=== PATIENT | female | born 1980 | race Caucasian/White ===

== ENCOUNTER 2016-12-18 05:00 | Inpatient (IN) | payer MEDICAID ==
[2016-12-15 10:26] LABS: BASOPHILS 0.2 % (0-2); EOSINOPHILS 2.6 % (0-7); HEMATOCRIT 40.3 % (36.0-48.0); HEMOGLOBIN 13.4 g/dL (12-16); IMMATURE GRANULOCYTES 0.2 % (0-5); LYMPHOCYTES 46.2 % (15-50); MCH 32.1 pg (26.0-34.0); MCHC 33.3 g/dL (31.0-37.0); MCV 96.4 fL (80.0-100.0); MEAN PLATELET VOLUME 9.7 fL (7.4-10.4); MONOCYTES 7.2 % (2-11); NEUTROPHILS 43.6 % (40-80); RBC 4.18 10x6/uL (4.00-5.40); RDW 11.8 % (11.5-14.5); WBC 5.3 10x3/uL (4.8-10.8)
[2016-12-15 10:28] LABS: PLATELET COUNT 340 10x3/uL (130-400)
[2016-12-15 10:35] LABS: CALC OSMOLALITY 275 mosm/kg (275-300); CALCIUM 8.9 mg/dL (8.5-10.1); CARBON DIOXIDE 26.8 mmol/L (21.0-32.0); CHLORIDE - SERUM 103 mmol/L (98-107); CREATININE - SERUM 0.9 mg/dL (0.6-1.3); GLUCOSE 97 mg/dL (74-106); POTASSIUM - SERUM 4.3 mmol/L (3.5-5.1); SODIUM 138 mmol/L (136-145); UREA NITROGEN 13 mg/dL (7-18); eGFR NON AFRICAN AMERICAN 76 mL/min (90-120)
[~2016-12-18] VITALS: Ht 162.6 cm; Wt 81.0 kg
[2016-12-18] VITALS (17 sets, daily range): BP systolic 96–130; BP diastolic 52–79; Ht 162.6 cm; Wt 81.0 kg
[~2016-12-18 05:00] MED LIST: ADIPEX-P37.5 MG PO
[2016-12-18 06:22] LABS: HCG URINE NEGATIVE (NEGATIVE)
--- NOTE | 2016-12-18 10:49 | NUR ---
RECEIVED PT TO ROOM VIA PT BED, SR UP X2, BED IN LOW POSIITON, PERIPHERAL IV TO RIGHT AC INTACT AND INFUSING LR AT 125ML/HR VIA PUMP, RESP EVEN AND UNLABORED, O2 AT 2L/MIN VIA NC AT 96%, HOB ELEVATED TO 30 DEGREES, LOW TRANSVERSE INCISION CDI WITH DERMABOND NOTED, SCD'S IN PLACE AND WORKING PROPERLY TO BLE, CAMEJO CATHETER TO GRAVITY DRAINAGE WITH CLEAR YELLOW URINE NOTED IN CHAMBER. PT MOANING RATING PAIN 10 OUT OF 10 USING NUMERIC PAIN SCALE, FOOD SAFETY TECHNICIAN MORPHINE TO PUMP INFUSING ORDERED, TEACHING PROVIDED REGARDING FOOD SAFETY TECHNICIAN BUTTON USE, STATES UNDERSTANDING. ENCOURAGED TCDB HOURLY. WILL REINFORCE. PHONE CALL TO PT SPOUSE PER PT REQUEST PERFORMED TO NOTIFY OF ADMISSION TO UNIT AND ROOM NUMBER.
--- NOTE | 2016-12-18 11:30 | NUR ---
PT RESTING WITH EYES CLOSED, WAKES PERIODICALLY MOANING, FOLLOWS DIRECTIONS, FERTILIZER MIXER BUTTON IN RIGHT HAND AND C/L IN EASY REACH. ENCOURAGED FERTILIZER MIXER BUTTON USE PRN, SPOUSE AT BEDSIDE. TEACHING DONE WITH SPOUSE AND PT. SPOUSE STATES WILL HAVE TO GO HOME BUT PT FRIEND WILL COME AND SIT WITH PT LATER.
--- NOTE | 2016-12-18 12:00 | NUR ---
NPO X ICE CHIPS PER MD HAWKINS. SEE FLOW SHEET. RESP EVEN AND UNLABORED. PT SLEEPING, WAKES FOR TCDB/INCENTIVE SPIROMETER. IS UP TO 500ML WITH ENCOURAGEMENT, ICE PACK TO LOW TRANSVERSE ABDOMEN, IV SITE PATENT WITHOUT S/SX INFILTRATION OR INFECTION AT THIS TIME.
--- NOTE | 2016-12-18 13:40 | NUR ---
PT FRIEND CAMMIE AT BEDSIDE, EXPLAINED POC, NPO X ICE CHIPS, PT REMAINS DROWSY, SLIP RESISTANT SOCKS TO BLE. SR UP X2, BED IN LOW POSITION.
--- NOTE | 2016-12-18 14:20 | NUR ---
DR HAWKINS TO PT ROOM, PT WAKES TO VERBAL STIMULI AND BEGINS MOANING, RESP EVEN AND UNLABORED AT 18, LUNGS CTAB, CASH APPLICATION CLERK BUTTON IN RIGHT HAND, CAMEJO CARE GIVEN, ICE PACK TO LOW TRANSVERSE ABDOMEN. NPO X ICE CHIPS.
--- NOTE | 2016-12-18 14:39 | NUR ---
TORADOL GIVEN PER MD ORDERS FOR PT C/O PAIN.
--- NOTE | 2016-12-18 15:25 | NUR ---
PT REPORTS INCREASED PAIN RELIEF SINCE TORADOL GIVEN ORDERED. RESP EVEN AND UNLABORED. AWAKE ON ENTRY TO ROOM. C/L IN EASY REACH, POC DISCUSSED. PT NODS IN RESPONSE.
--- NOTE | 2016-12-18 16:22 | NUR ---
PT RESTING WITH EYES CLOSED. ROUSES TO VERBAL STIMULI, C/L IN EASY REACH, REMINDED TO PUSH OFFICE MACHINE EMBOSSOGRAPH OPERATOR BUTTON WHEN NEEDED FOR PAIN CONTROL, DISCUSSED POC. ICE CHIPS PROVIDED.
--- NOTE | 2016-12-18 17:10 | NUR ---
PT RESTING WITH EYES CLOSED, ROUSES TO VERBAL STIMULI, TEMP 97.8 AX, ICE CHIPS GIVEN TO PT PER REQUEST, FRESH ICE PACK TO LOW TRANSVERSE ABDOMEN, REPORTS PAIN A 4 ON PAIN SCALE, ENCOURAGED USE OF TRIPLE VALVE MECHANIC BUTTON PRN. SR UP X2, BED IN LOW POSITION.
--- NOTE | 2016-12-18 18:14 | NUR ---
PT RESTING WITH EYES CLOSED, RESP EVEN AND UNLABORED, C/L AND CERTIFIED LEGAL INVESTIGATOR BUTTON WITHIN EASY REACH. NO VISUAL S/SX PAIN OBSERVED.
--- NOTE | 2016-12-18 19:20 | NUR ---
EYES CLOSED BUT EASILY AWAKENED DURING INITIAL ROUNDS. INTRODUCED SELF. V/S TAKEN. STATUS POST ISIDRA TODAY. LOW TRANSVERSE INCISION WITH DERMABOND. IVF LR TO R ac @ 125cc/hr. IV SITE OK. ON MORPHINE METAL BONDING ASSEMBLER FOR PAIN MANAGEMENT. SEE E-MAR. CAMEJO CATH TO DRAINAGE BAG. SCD's TO BOTH LOWER EXTREMITIES TO PREVENT DVT. INCENTIVE SPIROMETER AT BEDSIDE--REMINDED PT TO USE IT.
--- NOTE | 2016-12-18 20:05 | NUR ---
PAIN LEVEL 7-8/10 FROM ABD INCISION. TORADOL 30mg IV GIVEN FOR BREAKTHROUGH PAIN. SEE E-MAR.
--- NOTE | 2016-12-18 23:52 | NUR ---
V/S STABLE. IV PUMP CLEARED. CAMEJO CATH BAG EMTIED. ICE CHIPS GUVEN.
--- NOTE | 2016-12-19 02:08 | NUR ---
TORADOL 30mg IV GIVEN FOR BREAK-THROUGH PAIN. SEE E-MAR.
[2016-12-19 04:40] VITALS: BP 96/52
--- NOTE | 2016-12-19 04:42 | NUR ---
MORPHINE TAR HEAT EXCHANGER CLEANER SYRINGE CHANGED. REGLAN 5mg IV GIVEN. SEE E-MAR.
--- NOTE | 2016-12-19 04:50 | NUR ---
V/DSTABLE. CAMEJO CATH BAG EMTIED. IV PUMP CLEARED. SLEPT FAIRLY DURING THE NIGHT. CONTINUING PLAN OF CARE.
--- NOTE | 2016-12-19 06:50 | OP ---
PATIENT NAME: JOE TOTH MEDICAL RECORD: [id number] :84 LOCATION:[id number] ADMISSION DATE:12/18/16 SURGEON: JASON HAWKINS MD DATE OF OPERATION: 12/18/2016 PREOPERATIVE DIAGNOSIS: FABIO 2. POSTOPERATIVE DIAGNOSIS: FABIO 2. PROCEDURE: Total abdominal hysterectomy with bilateral salpingectomy. RETAIL GREETING CARD MERCHANDISER: Ms. Duffy ANESTHETIC: General with nerve block. FINDINGS: Uterus is unremarkable. The bulb was palpated. The abdominal anatomy was unremarkable. Tubes are interrupted with Filshie clips. Ovaries are unremarkable. SPECIMENS REMOVED: Tubes bilaterally, uterus, and cervix. Specimen disposition pathology. ESTIMATED BLOOD LOSS: 200 cc. FLUIDS: 1400 cc of lactated Ringer. URINE OUTPUT: 400 cc of clear urine. COMPLICATIONS: None. DRAINS: Correa to gravity. INDICATION FOR PROCEDURE: The patient is considered for total laparoscopic hysterectomy. Due to equipment issues and after counseling and offering deferral of procedure, the patient was consented for total abdominal hysterectomy. The patient understands risks and benefits as well as limitations. The patient understands the recovery time compared to laparoscopic. The patient wishes to proceed. DESCRIPTION OF PROCEDURE: After informed consent was assured, the patient was taken to the operating room where anesthetic was obtained without difficulty. The patient is now prepped and draped in the usual sterile fashion after being placed supine on the table. Pfannenstiel skin incision was made and carried down to the underlying layer of the fascia, which is opened in the midline and then carried out laterally. Rectus bellies were and the peritoneum was entered sharply. An Joselito O retractor was placed and the bowel packed free the pelvis. Using handheld retractors, the uterus is identified and Carmalt clamps placed over the uterine cornua. Right round ligament is grasped with a Peggy, elevated and stick tied. Using Bovie cautery, the round ligament was entered. The broad ligament was dissected anteriorly and bladder flap is completed across the midline. The window was developed posteriorly and incorporating the tube. The pedicle was made mobile with scissors and then a gbsw-uzk-plu stitch placed on the lateral portion of this pedicle. The connective tissue of the parametrium is dissected free of the right vessel. The vessel bundle was now clamped with Divya clamp. A straight clamp was placed OPERATIVE REPORT [id number] PRECIADO above to prevent backbleeding. This pedicle was developed with scissors. Divya stitches applied to obtain hemostasis. A straight clamp was now used to advance into the cardinal ligaments. This was developed with the scalpel and Divya stitch applied for hemostasis. Attention was now directed to the right side where the round ligament was entered in similar fashion. The bladder flap was now completely developed. A window was made in the posterior leaf of the broad ligament and a clamp placed through this. This pedicle now was developed and a goqt-dyr-wby stitch applied on the lateral aspect of it. The tube is not incorporated into this. The dissection continued on the left and a Divya clamp was placed over the left vascular bundle. A straight clamp again is placed above to prevent backbleeding and this pedicle was developed with scissors. Divya stitches applied for hemostasis. Again, a single straight clamp was used to advance into the cardinal ligaments. The pedicle was developed with scalpel and a Divya stitch applied. Remaining portion of the cardinal ligament serially clamped, cut, and tied with straight clamps and Vicryl stitch. The uterosacral ligaments were reached and Zeppelin clamps were used to cross clamp at the lower aspect of the cervix and across the vagina. The uterus and cervix were now removed with Jordyn scissors. Exdyix-bw-anpcm stitches were applied along the vaginal cuff for hemostasis. The Zeppelin clamps are closed with a toe-to-heel stitch of Vicryl. The pelvis was now irrigated, irrigant removed. The right ovary was plicated to the right round ligament. The left ovary was inspected and a Divya clamp placed below the tube and removed. The pedicle was now secured with a lxek-oxb-ifx stitch. Again, the pelvis was irrigated, irrigant removed. Adequate hemostasis is achieved. The left ovary is now plicated to the left round ligament. The packing is removed as well as the Joselito retractor. The rectus bellies were inspected. Bleeding vessels cauterized and the fascia closed in a running fashion with looped PDS. After closure of the fascia, subcutaneous tissues were irrigated, bleeding vessels cauterized, and the fat pad was closed with plain gut ligature. Subcuticular stitch was applied and Dermabond covers the incision. The sponge, lap and needle count was correct times 2. The belly was explored prior to closure and there was no evidence of retained sponge or instrument. TRANSINT:[id number] Voice Confirmation ID: [id number] DOCUMENT ID: [id number] JASON HAWKINS MD at 0650 CC: [id number] DICTATION DATE: 12/18/16 1014 NUCLEAR MEDICINE TECHNICIAN: 12/18/16 1056 ADM IN [place] [id number] [place] [id number]
--- NOTE | 2016-12-19 06:55 | NUR ---
REPORT GIVEN TO AM SHIFT NURSES.
--- NOTE | 2016-12-19 07:05 | NUR ---
DR HAWKINS TO PT ROOM. DISCUSSED POC CHANGES TODAY WITH PT. PT VOICES UNDERSTANDING.
[2016-12-19 07:20] VITALS: BP 104/62
--- NOTE | 2016-12-19 07:20 | NUR ---
PT AAOX3, VSS. AFEBRILE. MOVING EXTREMETIES FREELY IN BED. DISCUSSED ABDOMINAL SPLINTING WITH ABD PILLOW FOR TCDB EXERCISES. RESP EVEN AND UNLABORED, TOLERATING CLEAR LIQUIDS AT THIS TIME WITHOUT N/V, LUNGS CTAB, ABDOMEN SOFT, BOWEL SOUNDS + X4 QUADS, NO FLATUS REPORTED, LOW TRANSVERSE INCISION CDI WITH DERMABOND NOTED, NO REDNESS SWELLING OR DRAINAGE NOTED, CAMEJO CATHETER TO GRAVITY DRAINAGE DC'D PER MD ORDERS WITH NOTED 250ML CLEAR YELLOW URINE IN CHAMBER. NO EDEMA NOTED TO EXTREMETIES, PEDAL PULSES 2+ BILATERALLY, NO VAGINAL BLEEDING NOTED. IV SITE BENIGN TO RIGHT AC, INFUSING LR AT 125ML/HR AT THIS TIME, NO REDNESS, DRAINAGE, OR SWELLING NOTED. REVIEWED POC WITH PT, C/L IN EASY REACH, SR UP X2, BED IN LOW POSITION. PT TO USE C/L FOR ANY NEEDS OR CONCERNS.
--- NOTE | 2016-12-19 08:05 | NUR ---
TOLERATING CLEAR LIQUIDS WELL. ASSIST OOB TO BR FOR ATTEMPT TO VOID. PT UNABLE TO VOID AT THIS TIME. INSTRUCTED ON USE OF ABD PILLOW FOR SPLINTING. ASSISTED BACK TO BED, LINENS CHANGED, GIVEN ADDITIONAL APPLE JUICE PER REQUEST. LOCOMOTIVE ELECTRICIAN DC'D PER MD ORDERS. STATES UNDERSTANDING OF ALL INSTRUCTIONS GIVEN.
--- NOTE | 2016-12-19 08:20 | NUR ---
TORADOL 30MG IV GIVEN PER MD ORDERS, RATES PAIN 6 ON PAIN SCALE AT THIS TIME.
--- NOTE | 2016-12-19 09:10 | NUR ---
PT C/O BURNING PAIN, RATES 8/10, TO INCISION, LOW TRANSVERSE INCISION CDI WITHOUT DRAINAGE, REDNESS, OR SWELLING. ASSISTED OOB TO CHAIR AND THEN BACK TO BED, PT POISITONED SELF TO COMFORT, PERCOCET GIVEN WITH SIPS WATER AND ENCOURAGED TO EAT SALTINE CRACKERS TO AVOID N/V. C/L IN EASY REACH, PT HAS VISITOR TO ROOM.
--- NOTE | 2016-12-19 09:55 | NUR ---
PT ASSISTED OOB TO BR TO VOIDED, VOIDED 100ML CLEAR YELLOW URINE. REPORTS PAIN NOW A 5 AFTER PAIN MEDS. DOES NOT WANT ADDITIONAL PAIN MEDS AT THIS TIME.
--- NOTE | 2016-12-19 10:20 | NUR ---
ORDERED MED GIVEN IVP. DENIES PAIN AT THIS TIME. OOB TO VOID ADDITIONAL 200ML CLEAR YELLOW URINE. RESP EVEN AND UNLABORED.
[2016-12-19 11:25] VITALS: BP 103/58
--- NOTE | 2016-12-19 11:25 | NUR ---
SALINE LOCK RIGHT AC, SITE PATENT AND FLUSHES WITHOUT DIFFICULTY, NO EDEMA NOTED. IVF DC'D. OOB TO BR VOIDED 200 ML CLEAR YELLOW URINE, APPLE JUICE AND CRACKERS PROVIDED TO PT PER REQUEST. OOB TO AMBULATE IN HALLS. TOLERATED WELL. POSITIONED BACK TO BED TO COMFORT. C/L IN EASY REACH.
--- NOTE | 2016-12-19 13:03 | NUR ---
C/O ABDOMINAL CRAMPING AND INCISIONAL PAIN, 5/10 ON NUMERIC PAIN SCALE. 2 PERCOCET GIVEN PER MD ORDERS, C/L IN EASY REACH, FRESH ICE WATER PROVIDED. VISITOR TO ROOM. DENIES OTHER NEEDS AT THIS TIME.
--- NOTE | 2016-12-19 14:02 | NUR ---
DENIES NEEDS AT THIS TIME, REPORTS +FLATUS WHEN OOB TO BR. C/L IN EASY REACH.
[2016-12-19 14:44] VITALS: BP 115/62
--- NOTE | 2016-12-19 15:30 | NUR ---
PT OOB AMBULATORY IN ROOM. RESP EVEN AND UNLABORED, NO DISTRESS NOTED.
--- NOTE | 2016-12-19 16:10 | NUR ---
PT AAOX3, VOIDED 300ML CLEAR YELLOW URINE WITHOUT DIFFICULTY, REPORTS FLATUS, DENIES PAIN AT THIS TIME, USING SPLINT PILLOW TO ABDOMEN WITH REMINDERS PRN, SR UP X2, BED IN LOW POSITION, C/L IN EASY REACH.
--- NOTE | 2016-12-19 17:08 | NUR ---
CALL RCVD FROM DR HAWKINS WITH NEW ORDER FOR PO REGLAN 10MG X2 DOSES AND TORADOL 10MG Q6H WELL AMBIEN AT BEDTIME.
--- NOTE | 2016-12-19 17:29 | NUR ---
PT RESTING WITH EYES CLOSED, RESP EVEN AND UNLABORED, DENIES PAIN, DINNER TRAY POSITIONED OVER BED. C/L IN REACH. INFORMED PT OF RECENT MED CHANGE FROM IV TO PO. STATES UNDERSTANDING.
--- NOTE | 2016-12-19 18:21 | NUR ---
PT AAOX3, RESP EVEN AND UNLABORED. SR UP X2, C/L IN EASY REACH. WATCHING TV.
--- NOTE | 2016-12-19 19:20 | NUR ---
THIS RN TO BEDSIDE FOR SHIFT ASSESSMENT. REC'D PT AA&O X 4 LYING IN BED. PT REPORTS SHE JUST RETURNED TO BED AFTER VOIDING. PT CURRENTLY COMPLAINING AND MOANFING W/PAIN. PT RATES PAIN /. PAIN MEDICATION OFFERED. PT ACCEPTS. PT MEDICATED W/2 TABS PERCOCET 5/325MG PO. PT INFORMED THAT SHE WILL BE TRANSFERED TO A NEW ROOM DUE TO CENSUS. PT IS AGREEABLE. PT ALSO INFORMED THAT DUE TO HER PAIN AT THIS TIME, THIS RN WILL WAIT APRROX 30 MINS TO PERFORM HER ASSESSMENT SO THE PAIN MEDICATION CAN HAVE TIME TO HELP. PT VERBALIZES UNDERSTANDING AND IS AGREEABLE. PT'S BED LOW, SIDE RAILS UP X 2. CALL LIGHT AND PHONE AT PT'S SIDE. WARM BLANKET PLACED ON PT'S ABD FOR COMFORT. NO FURTHER NEEDS VOICED.
--- NOTE | 2016-12-19 19:54 | NUR ---
PT HEARD MOANING FROM NURSING STATION. THIS RN TO PT'S ROOM. PT REPORTS SHE JUST RETURNED FROM THE BATHROOM AGAIN AND HAS CONTINUED INCREASE PAIN AND PRESSURE. PT QUESTIONED ABOUT PASSIGN FLATUS. PT REPORTS SHE CAN FEEL IT MOVING AROUND AND BUT PASSES VERY LITTLE. WILL OBTAIN ORDERS FOR SIMETHICONE.
[2016-12-19 20:24] VITALS: BP 116/70
--- NOTE | 2016-12-19 21:21 | NUR ---
THIS RN TO BEDSIDE FOR TORADOL 10MG PO AND REGLAN 10MG PO PER SCHEDULED ORDER. PT AAA &O X4. MEDICATION ADMINISTERED. PT OOB W/OUT ASSISTANCE. TO SITTING ON SIDE OF BED. DENIES DIZZINESS. PT TRANSFERED AMBULATORY TO ROOM 1219. PT TO BR TO VOID BEFORE GETTING IN BED. PT DENIES NEEDS. DECLINES OFFERS TO BRING HER ANYTHING TO EAT OR DRINK. BED LOW, SIDE RAILS UP X 2. CALL LIGHT AND PHONE AT PT'S SIDE. FRESH ICE WATER SERVED. Jazlyn HAYES,RN AT BEDSIDE FOR INTRODUCTIONS.
--- NOTE | 2016-12-19 22:00 | NUR ---
ROUNDS MADE FOR PAIN REASSESSMENT. PT STATES "I'M FINE." RATES PAIN 5/10. LIGHTS TURNED DOWN PER PT REQUEST. NO NEEDS VOICED AT THIS TIME.
--- NOTE | 2016-12-19 22:52 | NUR ---
PT UP TO BR, GAIT STEADY, ADJ HEAT/AIR FOR PT, PT DENIES NEEDS AT THIS TIME
[2016-12-20 00:20] VITALS: BP 107/61
--- NOTE | 2016-12-20 00:20 | NUR ---
PT RESTING WITH EYES CLOSED, AROUSES TO SOFT VERBAL STIMULATION, VS OBTAINED, PT DENIES NEEDS OR PAIN AT THIS TIME
--- NOTE | 2016-12-20 02:24 | NUR ---
PT RESTING WITH EYES CLOSED, RESP QUIET, NO DISTRESS NOTED, LEFT UNDISTURBED AT THIS TIME
[2016-12-20 03:32] VITALS: BP 135/69
--- NOTE | 2016-12-20 03:32 | NUR ---
PT REIMBURSEMENT SPEC LIGHT, PT C/O INC PAIN, VS OBTAINED, ADM 0400 MED AND PERCOCET PO PER MD ORDERS WITH FRESH H20, SEE EMAR, PT DENIES FURTHER NEEDS
--- NOTE | 2016-12-20 05:20 | NUR ---
PT RESTING WITH EYES CLOSED, AROUSES TO SOFT VERBAL STIMULATION, ADM TORADOL PO PER MD ORDERS, SEE EMAR, PT DENIES NEEDS AT THIS TIME
--- NOTE | 2016-12-20 06:19 | NUR ---
PT RESTING WITH EYES CLOSED, RESP QUIET, NO DISTRESS NOTED, LEFT UNDISTURBED AT THIS TIME
[2016-12-20 07:15] VITALS: BP 139/74
--- NOTE | 2016-12-20 07:20 | NUR ---
SHIFT REPORT TO ALFREDO MARTINEZ RN
--- NOTE | 2016-12-20 07:30 | NUR ---
PT WAS RECEIVED THIS AM. SHE WAS RESTING IN BED. NOT TALKING MUCH. HER PAIN IS ABOUT A 6 AND SHE WOULD LIKE SOMETHING FOR THIS. I TOLD HER PAIN MED WAS NOT DUE AT THIS TIME BUT THAT I WILL GIVE IT TO HER WHEN IT IS TIME. SHE WAS OK WITH THIS. GEN- AWAKE AND ALERT. LUNGS WITH WHEEZING BILATERALLY. HEART- RRR. ABD SOFT WITH TENDERNESS. BIKINI LINE INCISION WITH DERMABOND. CLEAN AND DRY. EXT- NO EDEMA NOTED. BED IS LOW, SIDE RAILS UP X 2 AND CALL LIGHT IN REACH.
[2016-12-20] MEDS ORDERED: PERCOCET 7.5/321 TAB PO (08:48)
[2016-12-20] MEDS ORDERED: IBUPROFEN800 MG PO (08:48)
[2016-12-20] MEDS ORDERED: ROBITUSSIN AC (10 M1 PO (08:49)
--- NOTE | 2016-12-20 09:00 | NUR ---
PT IS UP TO SHOWER. HER SISTER IS AT BEDSIDE. PT TOLERATED WELL. INCISION PATTED DRY WITH TOWEL.
--- NOTE | 2016-12-20 09:15 | NUR ---
PT REQUESTED PAIN MED. GIVEN TWO PERCOCET 5/325. HER PAIN IS A 5/10.
--- NOTE | 2016-12-20 09:30 | NUR ---
DISCHARGE INSTRUCTIONS DISCUSSED WITH PT. HANDOUTS AND PRESCRIPTIONS GIVEN. PT HAS FU APPT ALREADY SCHEDULED. SHE IS DISCHARGED HOME. TAKEN TO FRONT DOOR BY WHEELCHAIR.
--- NOTE | 2016-12-25 07:56 | DS ---
PATIENT:JOE TOTH :84 MEDICAL RECORD: [id number] DISCHARGE SUMMARY ADMISSION DATE: 12/18/16 DISCHARGE DATE: 12/20/16 DATE OF ADMISSION: 12/18/2016 DATE OF DISCHARGE: 12/20/2016 ADMISSION DIAGNOSIS: Cervical intraepithelial neoplasia 3 of the cervix. DISCHARGE DIAGNOSIS: Cervical intraepithelial neoplasia 3 of the cervix. PROCEDURES: Total abdominal hysterectomy with bilateral salpingectomy. SURGEON: Jason Hawkins MD HISTORY OF PRESENT ILLNESS: See the H&P in the chart. SUMMARY OF HOSPITALIZATION: The patient was admitted on the morning of the and underwent an abdominal hysterectomy. The patient was doing well and at discharge was tolerating regular diet and voiding without difficulty. The patient has a slight cough coming into admission to the hospital with clear lungs. The cough continues and she will be discharged with Robitussin-AC as well as pain management for her incision. Discharge pain medications will be Motrin and Percocet. Side effects of these medications have been discussed with the patient. She will be followed in the clinic in 2 weeks for an incision check. Postoperative precautions were reinforced. TRANSINT:[id number] Voice Confirmation ID: [id number] DOCUMENT ID: [id number] JASON HAWKINS MD at 0756 CC: [id number] DICTATION DATE: 12/20/16716 [facility] NURSE PRACTITIONER: 12/20/16 1056 DIS IN 12/20/16 [place] [id number] [place] [address]
== END 2016-12-20 09:46 | disposition home or self-care (01) | DRG 741 ==
LOC: D.OPS 05:00 → D.PAN 07:30 → D.OPS 08:00 → D.PAN 08:30 → D.LD 10:38 → D.OPS 10:39 → D.LD 10:39 → D.WS 12-19 21:50
PROVIDERS: ADMIT Obstetrics & Gynecology
PROC: 0UB70ZZ Excision of Bilateral Fallopian Tubes, Open Approach (ICD-10-PCS; 2016-12-18)
PROC: 0UT90ZZ Resection of Uterus, Open Approach (ICD-10-PCS; principal; 2016-12-18 07:30)
PROC: 0UTC0ZZ Resection of Cervix, Open Approach (ICD-10-PCS; 2016-12-18 07:30)
DX: D06.9 Carcinoma in situ of cervix, unspecified (principal); R05 Cough; Z72.0 Tobacco use

== ENCOUNTER 2020-05-13 13:30 | Outpatient (CLI) | payer MEDICAID ==
[2016-12-18 11:29] VITALS: BMI 30.6
[~2020-05-13 13:30] MED LIST changes: +IBUPROFEN800 MG PO; +PERCOCET 7.5/321 TAB PO; +ROBITUSSIN AC (10 M1 PO
== END 2020-05-13 23:59 | disposition home or self-care (01) ==
LOC: D.MAMMO 13:30
PROVIDERS: ATTEND Obstetrics & Gynecology
DX: N63.0 Unspecified lump in unspecified breast (principal)